=== PATIENT | female | born 1995 | race Caucasian/White ===

== ENCOUNTER → 2023-12-03 14:39 | Outpatient (REF) | payer BC, SELFPAY | LOC: RAD 14:39 | PROVIDERS: ATTENDING PHYSICIAN Physician Assistant | DX: M25.562 Pain in left knee (principal); L03.119 Cellulitis of unspecified part of limb | CPT/HCPCS: 73564 ==

== ENCOUNTER → 2025-06-21 13:18 | Outpatient (REF) | payer OTHER, SELFPAY | LOC: MRI 3T 13:18 | PROVIDERS: ATTENDING PHYSICIAN Orthopaedic Surgery; FAMILY PHYSICIAN Family Medicine | DX: M75.01 Adhesive capsulitis of right shoulder (principal) | CPT/HCPCS: 23350; 73040; 73222 ==